=== PATIENT | female | born 1980 | race Caucasian/White ===

== ENCOUNTER 2016-10-05 16:09 | Emergency (ER) | payer BC ==
[2016-10-05 17:30] VITALS: BP 159/102
[2016-10-05] MEDS ORDERED: Amoxicillin/Clavulanate TAB* 875 MG PO ONE (19:41)
--- NOTE | 2016-10-05 20:19 | UC ---
Throat Pain/Nasal Sonu HPI - HPI Summary HPI Summary: SINCE YESTERDAY FEVER SORE THROAT CONGESTION, RED SPOTS IN TONSILS. 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 NO RASH. NO ABDOMINAL PAIN. - History of Current Complaint Chief Complaint: UCRespiratory Stated Complaint: SORE THROAT Time Seen by Provider: 10/05/16 18:57 Hx Obtained From: Patient, Family/Physician Relations Representative Hx Last Menstrual Period: September 26 Onset/Duration: Gradual Onset, Lasting Hours, Worse Since - TODAY Cough: Nonproductive Associated Signs & Symptoms: Positive: Dysphagia, Hoarseness, Sinus Discomfort, Nasal Discharge, Fever - Allergies/Home Medications Allergies/Adverse Reactions: Allergies Allergy/AdvReac Type Severity Reaction Status Date / Time Cefaclor [From Ceclor] Allergy Hives Verified 10/05/16 17:31 Ciprofloxacin [From Cipro] Allergy Hives Verified 10/05/16 17:31 Macrolides and Ketolides Allergy Rash Verified 10/05/16 17:33 Penicillins [PCN] Allergy Rash Verified 10/05/16 19:43 Quinolones Allergy Rash Verified 10/05/16 17:33 Valacyclovir [From Valtrex] Allergy Hives Verified 10/05/16 17:32 Home Medications: Home Medications Hydrochlorothiazide [Microzide-] 12.5 mg PO DAILY 10/05/16 [History Confirmed ] Potassium Chloride Microencaps [Potassium Chloride Cr] 10 meq PO 10/05/16 [ History] aMILoride/HCTZ 5-50 MG TAB* [Moduretic 5-50 TAB*] 1 tab PO DAILY 10/05/16 [ History Confirmed 10/05/16] PMH/Surg Hx/FS Hx/Imm Hx Previously Healthy: Yes Endocrine History Of: Denies: Diabetes, Thyroid Disease Cardiovascular History Of: Reports: Hypertension Denies: Cardiac Disorders Respiratory History Of: Denies: COPD, Asthma GI/ History Of: Denies: Ulcer - Surgical History Surgical History: Yes - Family History Known Family History: Negative: Respiratory Disease - Social History Occupation: Employed Full-time Lives: With Family Alcohol Use: Occasionally Substance Use Type: None Smoking Status (MU): Never Smoked Tobacco Review of Systems Constitutional: Fever, Chills Skin: Negative Eyes: Negative ENT: Sore Throat, Nasal Discharge Respiratory: Cough Cardiovascular: Negative Gastrointestinal: Negative Genitourinary: Negative Motor: Negative Neurovascular: Negative Musculoskeletal: Negative Neurological: Negative Psychological: Negative All Other Systems Reviewed And Are Negative: Yes Physical Exam Triage Information Reviewed: Yes Appearance: No Pain Distress, Well-Nourished, Ill-Appearing Vital Signs: Initial Vital Signs Temp 99.7 F 10/05/16 17:22 Pulse 107 10/05/16 17:22 Resp 20 10/05/16 17:22 BP 159/102 10/05/16 17:22 Pulse Ox 99 10/05/16 17:22 Vital Signs Reviewed: Yes Eye Exam: Normal Eyes: Positive: Conjunctiva Clear ENT: Positive: Hearing grossly normal, Pharyngeal erythema, TM dull, Tonsillar swelling, Tonsillar exudate Dental Exam: Normal Neck exam: Normal Neck: Positive: Supple, Nontender, No Lymphadenopathy Respiratory Exam: Normal Respiratory: Positive: Chest non-tender, Lungs clear, Normal breath sounds, No respiratory distress, No accessory muscle use Cardiovascular Exam: Normal Cardiovascular: Positive: RRR, No Murmur, Pulses Normal Abdominal Exam: Normal Abdomen Description: Positive: Nontender, No Organomegaly Musculoskeletal Exam: Normal Musculoskeletal: Positive: Strength Intact Neurological Exam: Normal Psychological Exam: Normal Skin Exam: Normal Throat Pain/Nasal Course/Dx - Differential Dx/Diagnosis Differential Diagnosis/HQI/PQRI: Pharyngitis, Sinusitis, Tonsillitis, URI Provider Diagnoses: STREP TONSILLITIS Discharge - Discharge Plan Condition: Stable Disposition: HOME Prescriptions: Amoxicillin/Clavulanate TAB* [Augmentin TAB 875*] 875 mg PO BID #20 tab Patient Education Materials: Strep Throat (ED) Referrals: Non Staff,Doctor [Primary Care Provider] -
== END 2016-10-05 20:10 | disposition home or self-care (01) ==
LOC: UCEAST 16:09
DX: J02.0 Streptococcal pharyngitis (principal); I10 Essential (primary) hypertension
CPT/HCPCS: 87651; 99212; A9270-GY; G0463